=== PATIENT | male | born 1985 | race Caucasian/White ===

== ENCOUNTER 2023-02-03 09:16 | Emergency (ER) | payer OTHER, SELFPAY ==
--- NOTE | ~2023-02-03 | XR_ITS ---
EXAMINATION: XR ankle LT min 3V DATE: 02/03/2023 10:29 INDICATION: Left lateral malleolus pain and swelling. TECHNIQUE: 4 views of left ankle were obtained. COMPARISON: None. FINDINGS: Bone alignment is normal. No fracture. Joint spaces are well maintained. There is ankle sof t tissue swelling. IMPRESSION: 1. No fracture. Reviewed, dictated and finalized at location A. IMPRESSION: 1. No fracture.
[2023-02-03 09:22] VITALS: BP 133/86; PULSE 71; RESP 16; TEMP 36.7; O2SAT 99
--- NOTE | 2023-02-03 10:21 | ED.LOWEXIN ---
HPI - Extremity Injury (Lower) General Chief Complaint: Extremity Injury, Lower Stated Complaint: Left Ankle Injury Time Seen by Provider: 02/03/23 10:21 Source: patient, RN notes reviewed and old records reviewed Mode of arrival: ambulatory Limitations: no limitations History of Present Illness HPI Narrative: 37-year-old male who presents to [facility] with complaints of left ankle pain and swelling which he awoke with this morning. Patient reports that he wore a new pair of tennis shoes to work yesterday and he was on his feet all day,denies any known injury to ankle. Patient reports no tingling or numbness to left foot, pedal pulse is strong, obvious edema noted to lateral ankle region. Patient reports that he has been taking some Tylenol for his discomfort. MD complaint: other (left ankle pain and swelling) Onset (ago): day(s) (today) Severity scale (1-10): 1 Treatments prior to arrival: other (Tylenol) Related Data Allergies Allergy/AdvReac Type Severity Reaction Status Date / Time azithromycin Allergy Unknown Rash Verified 02/03/23 10:19 Penicillins Allergy Unknown Rash Verified 02/03/23 10:19 Review of Systems Review of Systems: CONSTITUTIONAL: Denies fever, chills, or sweats. EYES: Denies visual changes, redness, or discharge. ENT: Denies rhinorrhea, congestion, sore throat, or otalgia. CARDIOVASCULAR: Denies chest pain, palpitations, or edema with exception to left lateral ankle RESPIRATORY: Denies cough or dyspnea. GASTROINTESTINAL: Denies abdominal pain, nausea, vomiting, or diarrhea. GENITOURINARY: Denies dysuria or hematuria. SKIN: Denies rash or itching. MUSCULOSKELETAL: Denies back pain, positive for left lateral ankle joint pain, or myalgia. NEUROLOGIC: Denies headache, numbness, or weakness. PSYCHIATRIC: Denies anxiety or depression. All systems reviewed & are unremarkable except as noted in HPI and below PMFSH Past Medical History Medical History (Updated 02/05/23 @ 07:28 by Arlene León NP) Ear infection as child Surgical History Surgical History H/O hand surgery right to remove foreign body Social History Social History Smoking status: Never smoker Alcohol intake: current Alcohol use details: social Substance use type: does not use Gender identity (if verbalized by the patient): Male Comments At time of signature, agree with nursing past medical, surgical, social and family history. There is no relevant family history pertinent to the presenting complaint Exam Narrative: GENERAL: Well-appearing, well-nourished, and in no acute distress. HEAD: Normocephalic, atraumatic. EYES: PERRLA and EOMI. ENT: Nares clear, no rhinorrhea or epistaxis. Mucous membranes moist.TM's normal with good light reflex, throat pink with no lesions or swelling NECK: Supple. no lymphadenopathy CHEST: Clear to auscultation. No respiratory distress.SAO2 99% on room air HEART: Regular rate and rhythm. No murmur heard. Normal peripheral pulses. ABDOMEN: Soft, nontender, nondistended, normal active bowel sounds. EXTREMITIES: Normal range of motion. No edema.Exception noted to left lateral ankle which has noted swelling and discomfort. ROM present and patient is able to walk on left foot though limp noted, pulses strong to left foot, left foot warm and pink. SKIN: Warm, dry, no rash. NEURO: No focal deficits. Alert and oriented x3. Course Course Emergency Course: Patient is aware of diagnosis, understands and agrees to treatment plan.? Anticipatory guidance given.? Patient agrees to follow-up as directed and is aware of reasons to seek care at the emergency department. Portions of this record may have been created with voice recognition software Level of Care: Express Care Visit Vital Signs Vital signs: Vital Signs Temperature 36.7 C 02/03/23 09:22 Pulse Rate 71 02/03/23 09:22 Respiratory
--- NOTE | 2023-02-03 10:23 | PC.NURSE ---
PT DECLINED ICE AND WHEELCHAIR TO RADIOLOGY
== END 2023-02-03 11:00 | disposition home or self-care (01) ==
PROVIDERS: Emergency Provider Registered Nurse; PCP Family Medicine
DX: S93.402A Sprain of unspecified ligament of left ankle, initial encounter (principal); S96.912A Strain of unspecified muscle and tendon at ankle and foot level, left foot, initial encounter; X58.XXXA Exposure to other specified factors, initial encounter
CPT/HCPCS: 73610; 99203; G0463

== ENCOUNTER 2025-10-07 08:56 | Emergency (ER) | payer OTHER, SELFPAY ==
--- OUTSIDE RECORDS SUMMARY | 2025-10-07 09:00 | XMS_ITS | Clinical Summary ---
Author Organization [facility] Address [address] [place] [address] Care Team Providers Care Quality Assurance Tester Name Role Phone Unavailable Primary Care Provider Unavailabl e Source Comments [facility],non-owned Affiliates and Associated Physician Practices is amultiple site organization consisting of ambulatory clinics and hospital sitesin [place], [place], [place] and [place]. This disclosure is being madepursuant to the Care Everywhere program and may not contain all information available regarding this patient. 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 Gender Identity Not on file Sexual Orientation Not on file Plan of Treatment Health Maintenance Due Date Last Done Comments HIV SCREENING 2001 HEPATITIS C SCREENING 08/08/2004 DTAP/TDAP/TD VACCINES (1 - Tdap) 2005 HEPATITIS B VACCINE (1 of 3 - 19+ 3-dose series) 2005 HPV VACCINE (1 - 3-dose SCDM series) 2013 DEPRESSION SCREENING 11/22/2024 COVID-19 VACCINE (1 - 2024-2 6 season) 2025 INFLUENZA VACCINE (#1) 2025 ZOSTER VACCINE (1 of 2) 2036 HIB VACCINE Aged Out No longer eligi ble based on patient's age to complete this topic MENINGOCOCCAL (Group B) VACC INE SHARED DECISION-MAKING Aged Out No longer eligibl e based on patient's age to complete this topic MENINGOCOCCAL GROUPS A/C/Y/W VACCINE Aged Out No longer eligible b ased on patient's age to complete this topic PNEUMOCOCCAL VACCINE Aged Out No long er eligible based on patient's age to complete this topic
--- OUTSIDE RECORDS SUMMARY | 2025-10-07 09:00 | XMS_ITS | Clinical Summary ---
Author Organization [facility] Address [address] [place] [address] Phone Care Team Providers Care Tool Hardener Name Role Phone Provider, None Primary Care Provider Unavailabl e Allergies Active Allergy Reactions Criticality Noted Date Comments Penicillins Other (see Comments) 05/29/2023 Patient states he almost passed out after taking this medication. Medications No known medications Social History Tobacco Use Types Packs/Day Years Used Date Smoking Tobacco: Former Cigarettes Smokeless Tobacco: Never Tobacco Cessation:Counseling Given: Not Answered Alcohol Use Standard Drinks/Week Comments Not Currently 0 (1 standard drink = 0.6 oz pur e alcohol) Sexually Active Control Partners Comments Not Currently Sex and Gender Information Value Date Recorded Sex Assigned at Not on file Legal Sex Male 8:51 PM CDT Gender Identity Not on file Sexual Orientation Not on file Last Filed Vital Signs Vital Sign Reading Time Taken Comments Blood Pressure 143/86 05/29/2023 8:56 PM CDT Pulse 72 05/29/2023 8:56 PM CDT Temperature 36.8 C (98.3 F) 05/29/2023 8:56 PM CDT Respiratory Rate 18 05/29/2023 8:56 PM CDT Oxygen Saturation 97% 05/29/2023 8:56 PM CDT Inhaled Oxygen Concentration - - Weight 99.8 kg (220 lb) 05/29/2023 8:56 PM CDT Height 185.4 cm (6' 1) 05/29/2023 8:56 PM CDT Body Mass Index 29.03 05/29/2023 8:56 PM CDT Plan of Treatment Not on file Insurance [facility] Care Teams Tool Hardener Relationship Specialty Start Date End Date Provider, None [place] PCP - General 05/29/23
--- OUTSIDE RECORDS SUMMARY | 2025-10-07 09:00 | XMS_ITS | Data Portability ---
Author Organization [place] [facility], Main Office Address [address] [place] [address] Assessment No assessment recorded. Plan of Treatment Reminders Order Date Submit Date Provider Last Modified By Organization Details Last Modified Time Details Appointments None recorded. Lab vitamin B12 + folate, serum or blood [address] [facility] (Lab), [address] [place], [address], 4 19:58:25 vitamin D, 25-hydroxy , total, serum [address] [facility] (Lab), [address] [place], [address], 4 05:27:42 magnesium, serum or plasma [email or web address] [place] [address] (Lab), [address] [place], [address], 4 08:16:36 CMP, serum or plasma [address] [facility] (Lab), [address] [place], [address], 4 19:58:25 CBC w/ auto diff [address] [facility] (Lab), [address] [place], [address], 4 19:58:25 lipid panel, serum [address] [facility] (Lab), [address] [place], [address], 4 19:58:25 TSH, serum or plasma 2023 024 [email or web address] [facility] (Lab), [address] [place], [address], 4 08:16:35 T4, free, serum 2023 024 [email or web address] 2 [facility] (Lab), [address] [place], [address], 4 08:16:36 CK (creatine kinase), total, serum 2023 024 [email or web address] 2 [facility] (Lab), [address] [place], [address], 4 08:16:36 glycohemog lobin, total, blood 2023 024 [email or web address] 2 [facility] (Lab), [address] [place], [address], 4 08:16:36 Referral None recorded. Procedures None recorded. Surgeries None recorded. Imaging XR, chest, 2 view 2023 024 [email or web address] 2 Not available 4 08:40:58 Medication Orders losartan 50 mg tablet 2023 024 [email or web address] [facility] [address] [place], [address], 4 16:15:43 Patient TargetsNo targets recorded. Patient InstructionsNo instructions recorded. Reason for Referral None Reported. Results Created Date Observation Date Name Description Value Unit Range Abnormal Flag Note LastModifiedBy Organization Detail LastModifiedTime 03/15/20 24 03/15/2024 XR, chest , 2 view No observ ation record ed. [email or web address] [facility] [address], [place], [address], 10/09/2024 10:24:39 Result Notes None recorded. Problems Name Problem SNOMED Code Status Onset Date Resolution Date Notes Provider Name and Address Organization Details Recorded Time Essential hypertension 94050142 Active 2023 GORDON Samano [address] [place], [place], [address], [facility] [employer] [facility] 4 10:58:31 Adult health examination Active 2023 GORDON Samano [address] [place], [place], [address], [facility] [employer] [facility] 4 11:01:17 At increased risk of nutritional deficit 849352051 Active 2023 GORDON Samano [address], [place], [place], [address], [facility] [employer] [facility] 4 11:06:37 Obese 719261734 Active 2023 Criselda Laguna RN null, [facility] [employer] [facility] 4 15:51:28 Palpitations 87672995 Active 2023 Devorah Tucker RN null, [facility] [employer] [facility] 4 10:39:12 Vitamin D deficiency 28142751 Active 2023 GORDON Samano [address], [place], [place], [address], [facility] [employer] [facility] 4 10:59:35 Serum vitamin B12 below reference range 797645757 Active 2023 GORDON Samano [address], [place], [place], [address], [facility] [employer] [facility] [employer] [facility] 4 11:00:26 Obesity 561338869 Active 2023 Criselda Laguna RN null, [facility] [employer] [facility] 4 16:25:54 Problem Notes None recorded. Medical Equipment None Reported. Allergies Allergen ID Allergen Name Allergen Category Reaction Reaction Severity Criticality Documentation Date Start Date Code Code System Note Provider Name and Address Organization Details Recorded Time 24198 Zithromax medicatio n Not available Not available Not available 03/15/2024 19493 4 RxNorm KRISTIE Suarez, [facility] 4 10:45:09 45954 Product containin g penicilli n (product) medicatio n other Not available Not available 03/15/2024 39924 8001 SNOMED KRISTIE Suarez, [facility] 4 10:45:31 Medications Name Sig Start Date Stop Date Status Note LastModified by Organization Details LastModified Time losartan 50 mg tablet Take 1 tablet every day by oral route in the morning for 30 days, for to lower bp. 05/16 completed pt states he was started on 100mg after walk in appts Not Available Not Available Not Available cyanocoba nakita (vit B-12) 1,000 mcg sublingua l tablet Place 1 tablet twice a day by sublingu al route for 30 days. 2023 active Not Available Not Available Not Avai lable losartan 100 mg tablet Take 1 tablet every day by oral route in the morning for 90 days. 2024 active Not Available Not Available Not Avai lable naproxen 500 mg tablet TAKE 1 TABLET BY MOUTH TWICE DAILY WITH FOOD NEEDED FOR PAIN 03/15 completed Not Available Not Available Not Available cholecalc iferol (vitamin D3) 50 mcg (2,000 unit) capsule Take 1 capsule every day by oral route after meal(s) for 30 days. 2023 active Not Available Not Available Not Avai lable Wegovy 0.25 mg/0.5 mL subcutane ous pen injector Inject 0.25 mg every week by subcutan eous route for 28 days. 2023 active Not Available Not Available Not Avai lable Zepbound 2.5 mg/0.5 mL subcutane ous pen injector INJECT 1 SYRINGE SUBCUTAN EOUSLY ONCE A WEEK 2023 active Not Available Not Available Not Avai lable Vitals Date Recorded Body weight Body mass index (BMI) Body height Body temperature Respiratory rate Heart rate Oxygen saturation Oxygen saturation in Arterial blood by Pulse oximetry Systolic And Diastolic Provider Name and Address Organization Details Last Updated DateTime 396866. 05 g 33.6 kg/m2 185.42 cm 98.6 [degF] 16 /min 80 /min 97 % 97 % 144/90 mm[Hg] Devorah Tucker RN [facility] 10:52:32 Date Recorded Body height Systolic And Diastolic Provider Name and Address Organization Details Last Updated DateTime 03/22/2024 185.42 cm 142/98 mm[Hg] Devorah Tucker RN [facility] 03/22/2024 10:33:27 Date Recorded Body height Systolic And Diastolic Provider Name and Address Organization Details Last Updated DateTime 03/29/2024 185.42 cm 142/80 mm[Hg] Devorah Tucker RN [facility] 03/29/2024 10:45:53 Social History Question Answer Notes LastModified by Organizat ion Details LastModified Time Tobacco Smoking Status Former Smoker Devorah Tucker RN [facility], [facility] 03/15/2024 10:47:27 Do You Have An Advance Directive? No Information not available 03/15/2024 Is Blood Transfusion Acceptable In An Emergency? Yes Information not available 03/15/2024 What Is Your Level Of Caffeine Consumption? Moderate Information not available 03/15/2024 What Is Your Code Status? Full Code Information not available 03/15/2024 In The 14 Days Before Symptom Onset, Have You Had Close Contact With A Laboratory-confir med COVID-19 While That Case Was Ill? No Information not available 03/15/2024 In The 14 Days Before Symptom Onset, Have You Had Close Contact With A Person Who Is Under Investigation For COVID-19 While That Person Was Ill? No Information not available 03/15/2024 What Type Of Diet Are You Following? REGULAR Information not available 03/15/2024 Which Illicit Or Recreational Drugs Have You Used? Marajuana Information not available 03/15/2024 What Is The Highest Grade Or Level Of School You Have Completed Or The Highest Degree You Have Received? [id number] Information not available 03/15/2024 Have There Been Any Changes To Your Family Or Social Situation? No Information no t available 03/15/2024 Are There Any Guns Present In Your Home? No Information not available 03/15/2024 Where Do You Live? SingleLevelHouse Information not available 03/15/2024 Do You Have A Medical Power Of Camp Advisor? No Information not available 03/15/2024 How Many Children Do You Have? -1 Information not available 03/15/2024 Do You Have Any Pets? Yes Information not available 03/15/2024 What Is Your Relationship Status? Information not available 03/15/2024 Do You Use Your Seat Belt Or Car Seat Routinely? Yes Information not available 03/15/2024 Are You Sexually Active? Yes Information not available 03/15/2024 Do You Have Smoke And Carbon Monoxide Detectors In Your Home? Yes Information not available 03/15/2024 Are You Passively Exposed To Smoke? No Information no t available 03/15/2024 Are There Any Smokers In Your House? No Information not available 03/15/2024 Do You Participate In Social Media? Yes Information not available 03/15/2024 Do You Use Sunscreen Routinely? No Information not available 03/15/2024 Have You Recently Traveled Abroad? No Information not available 03/15/2024 Have You Used IV Drugs? No Information not available 03/15/2024 Are You Currently In School? No Information not available 03/15/2024 Do You Have Any Dietary Restrictions? No Information not available 03/15/2024 Sex: Unknown Functional Status Question Answer Note LastModified by Organizat ion Details LastModified Time Do you use any illicit or recreational drugs? Yes Information not available 03/15/2024 Do you or have you ever used any other forms of tobacco or nicotine? No Information not available 03/15/2024 What is your level of alcohol consumption? Occasional Information not available 03/15/2024 Are you currently employed? Yes Information not available 03/15/2024 What is your exercise level? Occasional Information not available 03/15/2024 Mental Status Question Answer Note LastModified by Organization D etails LastModified Time Do you feel stressed (tense, restless, nervous, or anxious, or unable to sleep at night)? [id number] Information not available 03/15/2024 Family History Nothing Reported. Medical History No medical history recorded. Past Encounters Encounter ID Performer Location Encounter Start Date Encounter Closed Date Diagnosis/Indication Diagnosis SNOMED-CT Code Diagnosis ICD10 Code Diagnosis IMO Codes Diagnosis Note [id number] Ronn Cisse MD [facility] [place] [address] [place] [address] 03/15/2024 10:34:20 03/15/2024 11:11:16 Essential hypertension 83567698 I10 Adult heal th examination 972776271 Z00.00 At [facility] risk of nutritional deficit 544775697 Z91.89 [id number] Ronn Cisse MD [facility] [place] [address] [place] [address] 03/22/2024 10:26:35 04/07/2024 04:03:41 Essential hypertension 98502105 I10 [id number] Ronn Cisse MD [facility] [place] [address] [place] [address] 03/29/2024 10:27:28 04/19/2024 04:03:50 Health Concerns Section Related Observation LastModified by Organization Detai ls LastModified Time None Recorded Concern Status LastModified by Organization Details LastModified Time None Recorded Advance Directives Directive N: Payers Insurance Date Sequence Insurance Name Policy Number Policy Diez Covered Member ID Diez Member ID Guarantor Name 03/28/2024 1 [facility] Ji Hayden [id number] Ji Hayden Notes Date Note Type Note Provider Name and Address Organization Details Recorded Time 03/15/2024 text/html ROS as noted in the HPI palpitations, intermittent Edward GORDON Ta [address], [place], [address], [place] [facility] 03/22/2024 14:44:35
[2025-10-07 09:07] VITALS: BP 142/83; PULSE 67; RESP 20; TEMP 36.6; O2SAT 100
--- NOTE | 2025-10-07 09:15 | ED_ITS ---
HPI - Eye Problem General Chief complaint: Eye Problems Stated complaint: pink eye Time Seen by Provider: 10/07/25 09:10 Source: patient, RN notes reviewed and old records reviewed Mode of arrival: ambulatory Limitations: no limitations History of Present Illness HPI Narrative: 40-year-old male presents to the [facility] with bilateral eye redness for 5 days. States he has been using [id number] eye redness drops. States that he does wear contact lenses but has not worn numb since the symptoms started. States that he felt like it was related to allergies at 1st patient constantly tearing. Red injected conjunctiva noted. Denies any change in vision. Denies any trauma. Onset (ago): day(s) (4-5) Treatments Prior to Arrival: OTC eye drops Related Data Home Medications ?Medication ?Instructions ?Recorded ?Confirmed ?Last Taken ?Type cholecalciferol (vitamin D3) 50 50 mcg PO DAILY 01/24/25 Unknown History mcg (2,000 unit) capsule mecobalamin (vitamin B12) 1,000 1,000 mcg PO DAILY 04/1501/24/25 Unknown History mcg lozenges omega 8-hmo-ygl-fish oil 1,200 mg cap PO 01/24/25 0304/15 Unknown History (144 mg-216 mg) capsule (Fish Oil) losartan .ROUTE 10/07/25 Unknown His tory Allergies Allergy/AdvReac Type Severity Reaction Status Date / Time azithromycin Allergy Unknown Rash Verified 10/07/25 09:06 Penicillins Allergy Unknown Rash Verified 10/07/25 09:06 Review of Systems Review of Systems: All systems reviewed & are unremarkable except as noted in HPI and below Constitutional: Constitutional: Reports no additional constitutional complaints Eyes: Eyes: Reports as per HPI ENT: Reports system reviewed and no additional complaints, except as documented Musculoskeletal: Musculoskeletal: Reports no additional musculoskeletal complaints Integumentary/Breasts: Skin/Breast: Reports system reviewed and no additional complaints, except as docu PMFSH Past Medical History Medical History Ear infection as child Surgical History Surgical History H/O hand surgery right to remove foreign body Family History Family History Father Heart disease Hypertension Grandparent Heart disease Hypertension Social History Social History Smoking status: Never smoker Alcohol intake: current Alcohol use details: social Substance use type: does not use Gender identity (if verbalized by the patient): Male Comments At the time of my signature, I reviewed and agree with the nursing past medical, surgical, social, and family history. There is no relevant family history pertinent to the patient complaint. Exam Const: General: cooperative, healthy appearing, comfortable, no acute distress, well developed, alert and well nourished Nutritional Appearance: well nourished Orientation/consciousness: patient oriented x3 Limitations: no limitations HENMT: Head: normal to inspection Ears: hearing grossly normal bilaterally, external ears normal, TM's normal bilaterally, EAC's normal, mastoids normal and no periauricular adenopathy Face/Nose/Sinus: Normal external nose present and Normal nasal mucous membranes and turbinates present Eyes: General: appearance normal, both eyes and all related structures Alignment and Position: alignment normal Periorbital: periorbital findings normal Eyelids: eyelids normal Conjunctivae: conjunctival abnormality bilateral conjunctival injection and discharge Sclera: sclerae normal Pupils: Equal, round and reactive pupils present EOM: EOMs intact bilaterally Direct Ophthalmoscopy: normal light reflex and no photophobia Neck: Neck: normal visual inspection, full ROM, no lymphadenopathy and no meningeal signs Chest: Chest palpation & inspection: normal inspection of the chest Resp: Effort & Inspection: normal respiratory effort and able to speak in complete sentences Cardio: Rate: regular rate Skin: General skin exam: normal color and no rashes or lesions noted Neuro: General: patient oriented x3, gait normal, moves all extremities and no meningeal signs Cognition (Neuro): normal cognition Speech: normal speech Gait exam (Neuro): Normal gait present Extrem: General: normal to inspection, full ROM, capillary refill normal and normal gait Psych: Appearance: grossly normal and well kempt Mental Status: mental status grossly normal Speech and movement: Normal speech and movement present and Clear speech present Affect: normal affect Attitude: cooperative Course Course Level of Care: Express Care Visit Vital Signs Vital signs: Vital Signs Temperature 97.8 F 10/07/25 09:07 Pulse Rate 67 11/16/25 09:07 Respiratory Rate 20 10/07/25 09:07 Blood Pressure 142/83 H 10/07/25 09:07 Pulse Oximetry 100 10/07/25 09:07 Oxygen Delivery Room Air 10/07/25 09:07 Temperature 97.8 F 10/07/25 09:07 Pulse Rate 67 10/07/25 09:07 Respiratory Rate 20 10/07/25 09:07 Blood Pressure 142/83 H 10/07/25 09:07 Pulse Oximetry 100 10/07/25 09:07 Oxygen Delivery Room Air 10/07/25 09:07 Reviewed MDM - Eye Problem MDM Narrative Medical decision making narrative: Patient sitting in exam room. Patient is nontoxic, vitals stable. Patient presents with bilateral eye redness, tearing, irritation for 4-5 days. Visual acuity, left 20\ 40, r 20/30 patient is appropriate for outpatient treatment with close follow-up, discussed importance of following up with an eye doctor for thorough eye exam Discharge instructions reviewed with patient, as well as provided in writing per nursing staff. The instructions also include specific and strict return/GO TO THE ER as well as f/u information. All questions have been answered, and the patient deny any further questions with discharge and discharge plan. Some parts of this dictation were generated by voice recognition software and may contain typographical and/or grammatical inaccuracies. Differential Diagnosis Differential diagnosis: Likely corneal abrasion, conjunctivitis, acute iritis and corneal ulcer Critical Care Time Critical Care Time Critical Care Time: No Discharge Plan Discharge Clinical Impression: Bacterial conjunctivitis Patient Disposition: Home Condition: Stable Instructions: Antibiotic Form, Conjunctivitis (ED) Additional Instructions: Apply a cool, damp compress to your affected eye. Be sure to use a clean cloth each time to avoid spreading the infection. Gently clean your eyes with wet cotton balls or pads to remove crusty buildup or irritating discharge. Stop wearing contact lenses until the condition clears up. use prescription eyedrops as prescribed Maintain good hygiene and only touch your eyes with freshly washed hands. You should follow-up with an eye doctor within the next 72 hours [place]: Stacy- [phone] [facility] [phone] [place]- [phone] [place]: [facility] [phone] or [phone] [facility] [phone] [facility] [phone] [facility] [phone] [facility]- [phone] Patient Language: [place] Prescriptions: New ciprofloxacin HCl 0.3 % drops See Rx Instructions EACH EYE .COMPLEX Qty: 5 0RF Rx Instructions: put 1-2 drps in affected eye(s) every 2hr up to 8 times/day x2days; then 4 times/day x5days No Action losartan .ROUTE cholecalciferol (vitamin D3) 50 mcg (2,000 unit) capsule 50 mcg PO DAILY mecobalamin (vitamin B12) 1,000 mcg lozenge 1,000 mcg PO DAILY Rx Instructions: allow to dissolve in mouth OR may chew lightly before swallowing omega 7-zps-ktx-fish oil [Fish Oil] 1,200 (144-216) mg capsule PO losartan 100 mg tablet 100 mg PO DAILY Qty: 90 1RF Follow-up/Referrals: Kinza Pompa APRN [Primary Care Provider, Internal Medicine] - 2 Weeks Stand Alone Forms: Work/School Release IP Time of Disposition: 09:18
== END 2025-10-07 09:21 | disposition home or self-care (01) ==
PROVIDERS: Emergency Provider Nurse Practitioner; PCP Nurse Practitioner Family
DX: H10.9 Unspecified conjunctivitis (principal); I10 Essential (primary) hypertension
CPT/HCPCS: 99213; G0463